=== PATIENT | female | born 2005 | race Hispanic/Latino ===

== ENCOUNTER 2025-03-06 16:43 | Emergency (ER) | payer SELFPAY ==
[2025-03-06] MEDS ORDERED: NA CHLORIDE 0.9% 1,000 ML ONE (17:18)
[2025-03-06 17:32] LABS: Absolute Lymphocytes (CBC) 0.8 K/uL (0.7-4.9); Hematocrit 21.0 % (36.0-45.0); Hemoglobin 7.2 g/dL (12.0-15.0); MCH 28.2 pg (27.0-35.0); MCHC 34.2 g/dL (32.0-36.0); MCV 82.5 fL (80-100); MPV 9.4 fL (7.6-11.3); Nucleated RBC Absolute Count 0.0 (0-0); Nucleated Red Blood Cells % 0.0 % (0-0); RBC Red Blood Cell Count 2.54 M/uL (3.86-4.86); White Blood Count 6.00 thou/uL (4.3-10.9)
[2025-03-06 17:41] LABS: PT Prothrombin Time 13.1 SECONDS (10-13.0); PTT, Activated Partial Thromb 26.0 SECONDS (27.2-37.4); Protime INR 1.16
[2025-03-06 18:19] LABS: ALT/SGPT < 14 U/L (13-56); AST/SGOT < 10 U/L (15-37); Albumin 3.4 g/dL (3.4-5.0); Albumin/Globulin Ratio 0.9 (1.1-1.8); Alkaline Phosphatase 72 U/L (45-117); Anion Gap 9.5 mEq/L (5.0-15.0); BUN Blood Urea Nitrogen 15 mg/dL (7-18); Globulin 3.8 g/dL (2.3-3.5); Glucose Level 107 mg/dL (74-106); Magnesium 1.9 mg/dL (1.6-2.4); Potassium 3.5 mEq/L (3.5-5.1)
[2025-03-06 18:20] LABS: Bilirubin Indirect, Calculated 0.2 mg/dL (0.2-0.8); Troponin High Sensitivity < 3.0 pg/mL (<58.9)
[2025-03-06 18:31] LABS: Sqamous Epithelial <5 /HPF (None Seen); Urine Culture Reflex Order REFLEXED; Urine Microscopic Reflex YN ORDER UMIC
[2025-03-06] MEDS ORDERED: NA CHLORIDE 0.9% 250 ML ONE (18:48)
--- NOTE | 2025-03-06 18:49 | RAD REPORT ---
EXAMINATION: UPPER EXTREMITY VENOUS UNILATE CLINICAL INDICATION: Arm pain TECHNIQUE: Complete bilateral duplex sonography of the right upper extremity veins was performed. The examination included compression for vein patency, color Doppler imaging and flow augmentation in response to distal compression of the internal jugular,, subclavian, axillary, brachial, radial, ulna r, cephalic and basilic veins. .Grayscale, color and spectral analysis performed on all vessels COMPARISON: No prior exam. FINDINGS: The right internal jugular, subclavian, axillary, brachial, basilic, cephalic, radial and ulnar veins are generally compressible and demonstrate augmentation. Color Doppler demonstrates good flow. IMPRESSION: No evidence of venous thrombus right arm
--- NOTE | 2025-03-06 18:53 | RAD REPORT ---
EXAMINATION: Transvaginal Study Probe CLINICAL INDICATION: Pelvic pain TECHNIQUE: Real-time ultrasonography of the pelvis was performed transvaginally. Color and spectral D oppler evaluation of the ovaries was performed. COMPARISON: No prior exam. FINDINGS: The uterus measures 8 x 4 x 5 cm.. A fibroid is not seen. The endometrial stripe measures 1.6 cm. Right ovary normal in size and echotexture. Left ovary normal in size and echotexture. Right and left adnexa unremarkable No significant free fluid IMPRESSION: Mild thickening of the endometrium may be physiologic. However, it is recommended that the patient acevedo ve a follow-up endovaginal sonogram in a couple of months for reevaluation.
--- NOTE | 2025-03-06 18:58 | RAD REPORT ---
Procedure: Chest Single View HISTORY: Syncope COMPARISON: none FINDINGS: The lungs appear clear of acute infiltrate. No significant pleural effusion noted. The heart is normal size. IMPRESSION: No acute abnormality is displayed.
[2025-03-06] MEDS ORDERED: ACETAMINOPHEN 325 MG TABLET ONE (19:39)
[2025-03-06] MEDS ORDERED: NA CHLORIDE 0.9% 100 ML ONE (20:06)
[2025-03-06] MEDS ORDERED: TRANEXAMIC ACID 1,000 MG/10 ML VIAL IV ONE (20:06)
--- NOTE | 2025-03-06 21:45 | ER ---
Nurse's Notes [facility] Name: Alma Macias Age: 19 yrs Sex: Female : 2005 Arrival Date: 03/06/2025 Time: 16:43 Bed 20 Private MD: Diagnosis: Abnormal uterine and vaginal bleeding, unspecified;Anemia, unspecified Presentation: 03/06 16:48 Chief complaint: Patient states: C/O near syncope, dizziness, heavy menstrual cycle x2 ar8 weeks, and right arm numbness/pain. 16:48 Coronavirus screen: At this time, the client does not indicate any symptoms associated ar8 with coronavirus-19. Ebola Screen: No symptoms or risks identified at this time. Initial Sepsis Screen: Does the patient meet any 2 criteria? No. Patient's initial sepsis screen is negative. Does the patient have a suspected source of infection? No. Patient's initial sepsis screen is negative. Risk Assessment: Do you want to hurt yourself or someone else? Patient reports no desire to harm self or others. Onset of symptoms was March 06, 2025. 16:48 Method Of Arrival: Wheelchair ar8 16:48 Acuity: JANNA 3 ar8 Triage Assessment: 16:48 General: Appears in no apparent distress. Behavior is cooperative. ar8 16:48 Neuro: Reports dizziness, since this morning numbness in right arm. 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 - Infectious Disease History:: Denies. - Social history:: Smoking status: Patient denies any tobacco usage or history of. Screenin:15 [facility] ED Fall Risk Assessment (Adult) History of falling in the last 3 months, jl7 including since admission No falls in past 3 months (0 pts) Confusion or Disorientation No (0 pts) Intoxicated or Sedated No (0 pts) Impaired Gait No (0 pts) Mobility Assist Device Used No (0 pt) Altered Elimination No (0 pt) Score/Fall Risk Level 0 - 2 = Low Risk Oriented to surroundings, Maintained a safe environment. Abuse screen: Denies threats or abuse. Denies injuries from another. Nutritional screening: No deficits noted. Tuberculosis screening: No symptoms or risk factors identified. Assessment: 17:00 General: Appears in no apparent distress. uncomfortable, Behavior is calm, cooperative, jl7 appropriate for age. Pain: Denies pain. Neuro: Cooper Agitation-Sedation Scale (RASS): 0 - Alert and Calm Level of Consciousness is awake, alert, obeys commands, Oriented to person, place, time, situation. Cardiovascular: Patient's skin is warm and dry. Respiratory: Airway is patent Respiratory effort is even, unlabored, Respiratory pattern is regular, symmetrical. : Urine is blood tinged, Reports vaginal bleeding that is. Derm: Skin is dry, Skin is pale, Skin temperature is cool. 18:00 Reassessment: Patient appears in no apparent distress at this time. No changes from jl7 previously documented assessment. Patient and/or family updated on plan of care and expected duration. Pain level reassessed. Patient is alert, oriented x 3, equal unlabored respirations, skin warm/dry/pink. 18:43 Reassessment: blood request form sent to lab. jl7 19:14 General: Appears in no apparent distress. comfortable, Behavior is calm, cooperative, bm8 appropriate for age. Pain: Denies pain. Neuro: No deficits noted. Level of Consciousness is awake, alert, obeys commands, Oriented to person, place, time, situation. Cardiovascular: Denies chest pain, Capillary refill is > 3 seconds is sluggish in bilateral fingers Patient's skin is warm and dry. Respiratory: Airway is patent Respiratory effort is even, unlabored, Respiratory pattern is regular, symmetrical. Derm: Skin is dry, Skin is pale, Skin temperature is cool. 20:04 Reassessment: Patient appears in no apparent distress at this time. Patient and/or zm family updated on plan of care and expected duration. Pain level reassessed. Patient is alert, oriented x 3, equal unlabored respirations, skin warm/dry/pink. Patient states feeling better. Patient states symptoms have improved. General: Appears in no apparent distress. comfortable, Behavior is calm, cooperative, appropriate for age. Pain: Denies pain. Neuro: No deficits noted. Level of Consciousness is awake, alert, obeys commands, Oriented to person, place, time, situation. Cardiovascular: No deficits noted. Denies chest pain, Capillary refill < 3 seconds in bilateral fingers. Respiratory: No deficits noted. Airway is patent Respiratory effort is even, unlabored, Respiratory pattern is regular, symmetrical. 21:24 Reassessment: Patient appears in no apparent distress at this time. Patient and/or zm family updated on plan of care and expected duration. Pain level reassessed. Patient is alert, oriented x 3, equal unlabored respirations, skin warm/dry/pink. Patient states feeling better. Patient states symptoms have improved. General: Appears in no apparent distress. comfortable. Pain: Denies pain. Neuro: No deficits noted. Level of Consciousness is awake, alert, obeys commands, Oriented to person, place, time, situation. Cardiovascular: No deficits noted. Denies chest pain, Capillary refill < 3 seconds in bilateral fingers Patient's skin is warm and dry. Respiratory: No deficits noted. Airway is patent Respiratory effort is even, unlabored, Respiratory pattern is regular, symmetrical. 22:04 Reassessment: Patient appears in no apparent distress at this time. Patient and/or zm family updated on plan of care and expected duration. Pain level reassessed. Patient is alert, oriented x 3, equal unlabored respirations, skin warm/dry/pink. Patient states feeling better. Patient states symptoms have improved. Vital Signs: 16:50 BP 111 / 76; Pulse 93; Resp 16; Temp 97.1(TE); Pulse Ox 100% on R/A; ar8 17:15 BP 113 / 71; Pulse 99; Resp 15; Pulse Ox 100% ; jl7 18:30 BP 115 / 62; Pulse 93; Resp 15; Pulse Ox 100% ; jl7 19:14 BP 100 / 63; Pulse 91; Resp 14; Temp 98.9; Pulse Ox 100% ; Pain 0/10; bm8 20:08 BP 124 / 62; Pulse 90; Resp 20; Temp 98.9; Pulse Ox 100% on R/A; zm 21:26 BP 93 / 64; Pulse 78; Resp 14; Temp 98.2; Pulse Ox 100% on R/A; Pain 0/10; zm 21:55 BP 110 / 77; Pulse 77; Resp 15; Temp 98.2; Pulse Ox 100% ; Pain 0/10; bm8 19:14 Pain Scale: Adult bm8 21:26 Pain Scale: Adult zm 21:55 Pain Scale: Adult bm8 [place] Coma Score: 19:14 Eye Response: spontaneous(4). Motor Response: obeys commands(6). Verbal Response: bm8 oriented(5). Total: 15. 20:08 Eye Response: spontaneous(4). Motor Response: obeys commands(6). Verbal Response: zm oriented(5). Total: 15. 21:26 Eye Response: spontaneous(4). Motor Response: obeys commands(6). Verbal Response: zm oriented(5). Total: 15. 21:55 Eye Response: spontaneous(4). Motor Response: obeys commands(6). Verbal Response: bm8 oriented(5). Total: 15. ED Course: 16:46 Patient arrived in ED. im 16:47 Alea Berger PA-C is PHCP. sb4 16:47 Wes Freeman MD is Attending Physician. sb4 16:48 Arm band placed on right wrist. ar8 16:58 Inserted saline lock: 20 gauge in right antecubital area, using aseptic technique. ap3 Blood collected. Flushed with 10 mL NS. 16:59 Client placed on continuous cardiac and pulse oximetry monitoring. NIBP monitoring ap3 applied. monitor car operator on. Pulse ox on. NIBP on. 17:00 Christina Mckeon, RN is Primary Nurse. jl7 17:12 Triage completed. ar8 17:13 Initial lab(s) drawn, by ED staff, sent to lab. ts3 17:13 EKG done, by ED staff. ts3 17:15 Patient has correct armband on for positive identification. Bed in low position. Call jl7 light in reach. Side rails up X 1. Warm blanket given. 18:10 Urine collected: clean catch specimen, SENT TO LAB. ts3 18:31 Chest Single View XRAY In Process Unspecified. EDMS 18:38 UPPER EXTREMITY VENOUS UNILATE In Process Unspecified. EDMS 18:38 Transvaginal Study (probe) In Process Unspecified. EDMS 18:47 Provided Education on: Blood Transfusion. jl7 19:10 No provider procedures requiring assistance completed. Patient maintains SpO2 bm8 saturation greater than 95% on room air. 19:23 PHCP role handed off by Alea Berger PA-C cp 19:23 Alexander Joe PA is PHCP. cp 21:45 Iris Villaseñor MD is Referral Physician. cp 21:55 IV discontinued, intact, bleeding controlled, No redness/swelling at site. Pressure bm8 dressing applied. 21:55 Provided Education on: Post er care, follow up with OBGYN. bm8 Administered Medications: 17:31 Drug: NS 0.9% IV 1000 ml IV at 1 bolus Per protocol; to be given as a bolus over 60 jl7 minutes Route: IV; Rate: 1 bolus; Site: right antecubital; 18:43 Follow up: Response: No adverse reaction; IV Status: Completed infusion jl7 19:45 Drug: Acetaminophen PO 650 mg PO once Route: PO; zm 20:17 Follow up: Response: No adverse reaction zm 21:44 Drug: tranexamic acid IV 1000 mg IV at calculated rate once; administer at a rate not zm to exceed 100 mg per min Route: IV; Rate: calculated rate; Site: right antecubital; 21:56 Follow up: Response: No adverse reaction; IV Status: Completed infusion bm8 Medication: 17:15 VIS not applicable for this client. jl7 19:10 Blood products: PRBCs X 1 unit given. See transfusion record. bm8 Outcome: 21:45 Discharge ordered by MD. cp 21:55 Discharged to home ambulatory, with family, bm8 21:55 Condition: stable 21:55 Discharge instructions given to patient, family, Instructed on discharge instructions, follow up and referral plans. no drinking with medication, no driving heavy equipment, medication usage, safe sex practices, safety practices, control, Demonstrated understanding of instructions, follow-up care, medications, Prescriptions given X 1, 22:14 Patient left the ED. santiago Signatures: Dispatcher [employer] EDMS Alexander Joe PA-C PA-C cp Leal, Jahala, RN RN jl7 Marlene Scott RN RN marina3 Eduarda Victor RN RN zm Brown, Sophia, PA-C PA-C sb4 Kathryn Trammell Brad RN RN bm8 Zina Marin ts3 Jackson Choudhury RN RN ar8
--- NOTE | 2025-03-06 21:45 | EDPHYS ---
Physician Documentation [facility] Name: Alma Macias Age: 19 yrs Sex: Female : 2005 Arrival Date: 03/06/2025 Time: 16:43 Bed 20 Private MD: ED Physician Wes Freeman HPI: 03/06 16:57 This 19 yrs old Female presents to ER via Unassigned with complaints of Arm Pain, sb4 Numbness Of Arm, Near Syncope, Vaginal Bleeding - 2 weeks. 17:00 Patient presents today with several complaints. She states that she initially had an sb4 episode of some right arm numbness weakness a few days ago but thought it was just because she slept on it funny. States that today while at work, she had a near syncopal episode and her arm has been feeling numb and weak again. Additionally, she states that she has been on her menstrual cycle for 2 weeks now, bleeding heavily. States that this is abnormal for her, and her cycles typically last 5 days but are irregular when they do come. She is not on any rate control. Denies any chance of . Denies any chest pain or shortness of breath. 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 - Infectious Disease History:: Denies. - Social history:: Smoking status: Patient denies any tobacco usage or history of. ROS: 17:00 Constitutional: Negative for fever, chills, and weight loss, sb4 17:00 : Positive for vaginal bleeding, 17:00 Neuro: Positive for dizziness, numbness, weakness, of the right arm, 17:00 All other systems are negative, Exam: 17:00 Head/Face: Normocephalic, atraumatic. Eyes: Extra-ocular motions intact. Periorbital sb4 areas with no swelling, redness, or edema. ENT: Mucous membranes moist. Cardiovascular: Regular rate and rhythm with a normal S1 and S2. Respiratory: No increased work of breathing, no retractions or nasal flaring. Abdomen/GI: Soft, non-tender, no distension. Skin: Warm, dry with normal turgor. Normal color with no rashes, no lesions, and no evidence of cellulitis. MS/ Extremity: Pulses equal, no cyanosis. Neurovascular intact. Full, normal range of motion. Neuro: Awake and alert, GCS 15, oriented to person, place, time, and situation. Motor strength 5/5 in all extremities. Sensory grossly intact. 17:00 Constitutional: The patient appears in no acute distress, alert, awake, pale, 17:13 ECG was reviewed by the Attending Physician. cp Vital Signs: 16:50 BP 111 / 76; Pulse 93; Resp 16; Temp 97.1(TE); Pulse Ox 100% on R/A; ar8 17:15 BP 113 / 71; Pulse 99; Resp 15; Pulse Ox 100% ; jl7 18:30 BP 115 / 62; Pulse 93; Resp 15; Pulse Ox 100% ; jl7 19:14 BP 100 / 63; Pulse 91; Resp 14; Temp 98.9; Pulse Ox 100% ; Pain 0/10; bm8 20:08 BP 124 / 62; Pulse 90; Resp 20; Temp 98.9; Pulse Ox 100% on R/A; zm 21:26 BP 93 / 64; Pulse 78; Resp 14; Temp 98.2; Pulse Ox 100% on R/A; Pain 0/10; zm 21:55 BP 110 / 77; Pulse 77; Resp 15; Temp 98.2; Pulse Ox 100% ; Pain 0/10; bm8 19:14 Pain Scale: Adult bm8 21:26 Pain Scale: Adult zm 21:55 Pain Scale: Adult bm8 Porsche Coma Score: 19:14 Eye Response: spontaneous(4). Motor Response: obeys commands(6). Verbal Response: bm8 oriented(5). Total: 15. 20:08 Eye Response: spontaneous(4). Motor Response: obeys commands(6). Verbal Response: zm oriented(5). Total: 15. 21:26 Eye Response: spontaneous(4). Motor Response: obeys commands(6). Verbal Response: zm oriented(5). Total: 15. 21:55 Eye Response: spontaneous(4). Motor Response: obeys commands(6). Verbal Response: bm8 oriented(5). Total: 15. MDM: 16:47 Medical Screening Exam initiated sb4 17:04 Differential diagnosis: anemia, hypokalemia, dysmenorrhea, menorrhagia. Historians sb4 other than the Patient: Parent: dad. 17:49 ED course: Hemoglobin came back at 7.2. Will transfuse 1 unit of blood and add on sb4 transvaginal ultrasound to further evaluate source of bleeding. 17:56 Data reviewed: vital signs, nurses notes, lab test result(s), EKG, radiologic studies, sb4 I have discussed the patient's presentation/case with the attending Emergency Department Physician;. Counseling: I had a detailed discussion with the patient and/or guardian regarding the historical points, exam findings, and any diagnostic results supporting the discharge/admit diagnosis, lab results, radiology results. 03/06 16:57 Order name: Basic Metabolic Panel; Complete Time: 18:20 sb4 03/06 16:57 Order name: CBC with Diff; Complete Time: 17:36 sb4 03/06 16:57 Order name: Hepatic Function; Complete Time: 18:20 sb4 03/06 16:57 Order name: Magnesium; Complete Time: 18:20 sb4 03/06 16:57 Order name: Protime (+inr); Complete Time: 17:45 sb4 03/06 16:57 Order name: Ptt, Activated; Complete Time: 17:45 sb4 03/06 16:57 Order name: Troponin High Sensitivity; Complete Time: 18:20 sb4 03/06 16:57 Order name: Test, Serum; Complete Time: 18:06 sb4 03/06 16:57 Order name: UA Rfx Mikel Cult if indicated; Complete Time: 18:35 sb4 03/06 16:57 Order name: Type And Screen sb4 03/06 18:19 Order name: ABO/RH no charge; Complete Time: 18:20 EDMS 03/06 18:23 Order name: Packed RBC Leukored EDMS 03/06 18:38 Order name: Urine Culture EDMS 03/06 16:57 Order name: Chest Single View XRAY; Complete Time: 18:58 sb4 03/06 17:00 Order name: UPPER EXTREMITY VENOUS UNILATE; Complete Time: 18:51 EDMS 03/06 17:39 Order name: Transvaginal Study (probe); Complete Time: 18:53 sb4 03/06 16:57 Order name: EKG; Complete Time: 16:57 sb4 03/06 16:57 Order name: Cardiac monitoring; Complete Time: 16:59 sb4 03/06 16:57 Order name: EKG - Nurse/Tech; Complete Time: 17:13 sb4 03/06 16:57 Order name: IV Saline Lock; Complete Time: 16:59 sb4 03/06 16:57 Order name: Labs collected and sent; Complete Time: 17:13 sb4 03/06 16:57 Order name: O2 Per Protocol; Complete Time: 16:59 sb4 03/06 16:57 Order name: O2 Sat Monitoring; Complete Time: 16:59 sb4 03/06 17:41 Order name: Transfuse; Complete Time: 19:14 sb4 EC:13 Rate is 96 beats/min. Rhythm is regular. NC interval is normal. QRS interval is normal. cp QT interval is normal. T waves are Inverted in leads aVL, aVR. Interpreted by me. Reviewed by me. Administered Medications: 17:31 Drug: NS 0.9% IV 1000 ml IV at 1 bolus Per protocol; to be given as a bolus over 60 jl7 minutes Route: IV; Rate: 1 bolus; Site: right antecubital; 18:43 Follow up: Response: No adverse reaction; IV Status: Completed infusion jl7 19:45 Drug: Acetaminophen PO 650 mg PO once Route: PO; zm 20:17 Follow up: Response: No adverse reaction zm 21:44 Drug: tranexamic acid IV 1000 mg IV at calculated rate once; administer at a rate not zm to exceed 100 mg per min Route: IV; Rate: calculated rate; Site: right antecubital; 21:56 Follow up: Response: No adverse reaction; IV Status: Completed infusion bm8 Disposition Summary: 03/06/25 21:45 Discharge Ordered Notes: Location: Home cp Problem: new cp Symptoms: have improved cp Condition: Stable cp Diagnosis - Abnormal uterine and vaginal bleeding, unspecified cp - Anemia, unspecified cp Followup: sb4 - With: Iris Villaseñor MD - When: 2 - 3 days - Reason: Further diagnostic work-up, Recheck today's complaints, Re-evaluation by your physician Discharge Instructions: - Form - Return To Work cp - Discharge Summary Sheet sb4 - Abnormal Uterine Bleeding, [id number] sb4 - Blood Transfusion, Adult, Care After, [id number] sb4 Forms: - Medication Reconciliation Form cp - Antibiotic Education cp - Prescription Opioid Use cp - Patient Portal Instructions cp - Leadership Thank You Letter cp - Work release form bm8 Prescriptions: - Sprintec (28) 0.25-0.035 mg Oral tablet - take 1 tablet ORAL route daily; 1 Pack; Refills: 0, Product Selection Permitted sb4 Critical care time excluding procedures: 17:55 Critical care time: Bedside Care: 20 minutes, Consultation: 10 minutes, Family sb4 Intervention: 5 minutes. Total time: 35 minutes Signatures: Dispatcher [employer] EDMS Alexander Joe, Christina Enriquez PA-C, cp RN RN jl7 Eduarda Victor RN RN Alea Turk PA-C PA-C sb4 Jackson Choudhury RN RN ar8 Terry Campbell RN bm8 Corrections: (The following items were deleted from the chart) 16:57 16:57 BASIC METABOLIC PANEL+C.LAB.BRZ ordered. EDMS EDMS 16:57 16:57 CBC+H.LAB.BRZ ordered. EDMS EDMS 16:57 16:57 HEPATIC FUNCTION+C.LAB.BRZ ordered. EDMS EDMS 16:57 16:57 MAGNESIUM+C.LAB.BRZ ordered. EDMS EDMS 16:57 16:57 PROTIME (+INR)+COAG.LAB.BRZ ordered. EDMS EDMS 16:57 16:57 PTT, ACTIVATED+COAG.LAB.BRZ ordered. EDMS EDMS 16:57 16:57 Troponin High Sensitivity+C.LAB.BRZ ordered. EDMS EDMS 16:57 16:57 TEST, SERUM+SC.LAB.BRZ ordered. EDMS EDMS 16:57 16:57 UA Rfx Mikel Cult if indicated+U.LAB.BRZ ordered. EDMS EDMS 16:57 16:57 TYPE AND SCREEN+BB.LAB.BRZ ordered. EDMS EDMS 16:57 16:57 Extremity Venous Uni Ltd+US.RAD.BRZ ordered. EDMS EDMS 16:58 16:57 ABO/RH TYPING+BB.LAB.BRZ ordered. EDMS EDMS
[2025-03-07 05:33] VITALS: O2SAT 100
[2025-03-07 05:44] VITALS: TEMP 98.2
[2025-03-07 05:46] VITALS: BP 110/77
== END 2025-03-06 22:14 | disposition home or self-care (01) ==
LOC: ER 16:43
PROC: 30233N1 Transfusion of Nonautologous Red Blood Cells into Peripheral Vein, Percutaneous Approach (ICD-10-PCS; principal; 2025-03-06)
DX: D64.9 Anemia, unspecified (principal)
CPT/HCPCS: 36415; 36430; 71045; 76830; 80048; 80076; 81001; 83735; 84484; 84703; 85025; 85610; 85730; 86850; 86900; 86901; 86920; 87086; 87088; 93005; 93971; 96361; 96374; 99285; J7030; J7050; P9016

== ENCOUNTER 2025-03-08 15:10 | Inpatient (IN) | payer SELFPAY ==
[2025-03-08 15:32] LABS: Absolute Lymphocytes (CBC) 1.1 K/uL (0.7-4.9); Hematocrit 16.9 % (36.0-45.0); MCH 28.4 pg (27.0-35.0); MCHC 34.5 g/dL (32.0-36.0); MCV 82.2 fL (80-100); MPV 8.9 fL (7.6-11.3); Nucleated RBC Absolute Count 0.0 (0-0); Nucleated Red Blood Cells % 0.0 % (0-0); RBC Red Blood Cell Count 2.05 M/uL (3.86-4.86); White Blood Count 9.60 thou/uL (4.3-10.9)
[2025-03-08 15:36] LABS: Hemoglobin 5.8 g/dL (12.0-15.0)
[2025-03-08 15:50] LABS: ALT/SGPT 16.0 U/L (13-56); AST/SGOT 13.0 U/L (15-37); Albumin 3.1 g/dL (3.4-5.0); Albumin/Globulin Ratio 1.0 (1.1-1.8); Alkaline Phosphatase 47.0 U/L (45-117); Anion Gap 12.7 mEq/L (5.0-15.0); BUN Blood Urea Nitrogen 15.0 mg/dL (7-18); Globulin 3.1 g/dL (2.3-3.5); Glucose Level 155.0 mg/dL (74-106); Potassium 3.7 mEq/L (3.5-5.1)
[2025-03-08] MEDS ORDERED: NA CHLORIDE 0.9% 250 ML ONE (17:47)
--- NOTE | 2025-03-08 17:47 | EDPHYS ---
Physician Documentation [facility] Name: Alma Macias Age: 19 yrs Sex: Female : 2005 Arrival Date: 03/08/2025 Time: 15:10 Bed 8 Private MD: ED Physician Manish Robb HPI: 03/08 17:18 This 19 yrs old Female presents to ER via Ambulatory with complaints of ms3 General Weakness. 17:18 19-year-old female past medical history of anemia presents to the emergency department ms3 for generalized weakness, shortness of breath, vaginal bleeding going for 2 weeks. Patient states she was seen in the emergency department on Saturday and given blood transfusion at that time. Patient endorses shortness of breath, dizziness, lightheadedness. Patient states she is going through 1 pad every 1-2 hours. Patient denies pain at this time.. ANIMAL STUNNER: 20:12 unknown bm8 Historical: - Allergies: 15:17 No Known Allergies; aa5 - PMHx: 15:17 Anemia; aa5 - Immunization history:: Adult Immunizations unknown. - Infectious Disease History:: Denies. - Social history:: Smoking status: Patient denies any tobacco usage or history of. ROS: 17:18 MS/Extremity: Negative for injury and deformity, Skin: Negative for injury, rash, and ms3 discoloration, 17:18 Cardiovascular: Negative for chest pain, and palpitations. 17:18 Constitutional: Positive for fatigue, 17:18 : Positive for vaginal bleeding, 17:18 Respiratory: Positive for shortness of breath, ms3 Exam: 17:17 ECG was reviewed by the Attending Physician. ms3 17:18 Constitutional: This is a well developed, well nourished patient who is awake, alert, ms3 and in no acute distress. Respiratory: Lungs have equal breath sounds bilaterally, clear to auscultation and percussion. No rales, rhonchi or wheezes noted. No increased work of breathing, no retractions or nasal flaring. Abdomen/GI: Soft, non-tender, with normal bowel sounds. No distension or tympany. No guarding or rebound. No evidence of tenderness throughout. Skin: Warm, dry with normal turgor. Normal color with no rashes, no lesions, and no evidence of cellulitis. MS/ Extremity: Pulses equal, no cyanosis. Neurovascular intact. Full, normal range of motion. 17:18 Cardiovascular: Rate: tachycardic, Rhythm: regular, Pulses: no pulse deficits are appreciated, Heart sounds: normal, normal S1and S2, Vital Signs: 15:12 BP 114 / 75; Pulse 136; Resp 24 S; Pulse Ox 100% on R/A; aa5 15:22 Temp 98.2; Weight 55.79 kg; Height 5 ft. 2 in. ; nh2 16:00 BP 96 / 64; Pulse 125; Resp 17; Pulse Ox 99% on R/A; hb 17:00 BP 111 / 63; Pulse 118; Resp 18; Pulse Ox 97% on R/A; hb 18:00 BP 94 / 67; Pulse 105; Resp 18; Pulse Ox 98% on R/A; hb 19:05 BP 105 / 59; Pulse 94; Resp 16; Temp 97; Pulse Ox 100% ; Pain 0/10; bm8 20:11 BP 100 / 52; Pulse 93; Resp 16; Temp 98; Pulse Ox 100% ; Pain 0/10; bm8 15:22 Body Mass Index 22.50 (55.79 kg, 157.48 cm) nh2 19:05 Pain Scale: Adult bm8 20:11 Pain Scale: Adult bm8 Porsche Coma Score: 19:05 Eye Response: spontaneous(4). Motor Response: obeys commands(6). Verbal Response: bm8 oriented(5). Total: 15. 20:11 Eye Response: spontaneous(4). Motor Response: obeys commands(6). Verbal Response: bm8 oriented(5). Total: 15. MDM: 15:28 Medical Screening Exam initiated ms3 17:18 Differential diagnosis: dysfunctional uterine bleeding, dysmenorrhea, Anemia. Data ms3 reviewed: vital signs, nurses notes, lab test result(s), and as a result, I will admit patient. Consideration of Admission/Observation Patient was admitted/placed on observation. Management of patient was discussed with the following: It Operations Analyst: Dr Villaseñor. Independent interpretation of the following test(s) in the Emergency Department EKG: See my EKG interpretation above. Counseling: I had a detailed discussion with the patient and/or guardian regarding the historical points, exam findings, and any diagnostic results supporting the discharge/admit diagnosis, lab results, the need for further work-up and treatment in the hospital. 17:44 I considered the following discharge prescriptions or medication management in the ms3 emergency department Medications were administered in the Emergency Department. See MAR. ED course: Discussed necessity for admission with the patient. She understands and agrees with plan. All questions were answered. Patient remains in stable condition in the emergency department.. 03/08 15:13 Order name: CBC with Diff; Complete Time: 16:13 ms3 03/08 15:13 Order name: CMP; Complete Time: 16:13 ms3 03/08 15:13 Order name: Test, Serum; Complete Time: 16:13 ms3 03/08 15:49 Order name: Type And Screen ms3 03/08 15:58 Order name: Bb Add On bd 03/08 16:17 Order name: Quantitative Hcg; Complete Time: 17:42 ms3 03/08 17:09 Order name: Type and Screen EDMS 03/08 17:09 Order name: Packed RBC Leukored EDMS 03/08 20:03 Order name: CBC without Diff EDMS 03/08 20:05 Order name: CBC with Automated Diff EDMS 03/08 20:05 Order name: CBC with Automated Diff EDMS 03/08 20:05 Order name: Comprehensive Metabolic Panel EDMS 03/08 20:05 Order name: Comprehensive Metabolic Panel EDMS 03/08 20:05 Order name: Magnesium EDMS 03/08 20:05 Order name: Magnesium EDMS 03/08 15:13 Order name: EKG; Complete Time: 15:13 ms3 03/08 15:13 Order name: EKG Strip; Complete Time: 15:38 ms3 EC:17 Rate is 108 beats/min. Rhythm is regular. QRS [place] is Normal. LA interval is normal. ms3 QRS interval is normal. Clinical impression: Sinus tachycardia. Interpreted by me. Reviewed by me. Administered Medications: 18:00 Drug: DepoProvera - medroxyPROGESTERone IM 150 mg IM once; Only after HCG 0 Route: IM; bp Site: right gluteus; 20:12 Follow up: Response: No adverse reaction bm8 Disposition Summary: 03/08/25 17:46 Hospitalization Ordered Notes: Hospitalization Status: Observation ms3 Provider: Bashir Lozada ms3 Location: Telemetry/MedSurg (observation) ms3 Condition: Stable ms3 Problem: new ms3 Symptoms: are unchanged ms3 Bed/Room Type: Standard ms3 Room Assignment: 228(03/08/25 20:04) [facility] Diagnosis - Anemia, unspecified ms3 - Shortness of breath ms3 - Tachycardia, unspecified ms3 Discharge Instructions: - Discharge Summary Sheet [facility] Forms: - Medication Reconciliation Form ms3 - SBAR form ms3 - Leadership Thank You Letter ms3 - Family Work Release [facility] Critical care time excluding procedures: 17:44 Critical care time: Bedside Care: 30 minutes, Consultation: 10 minutes, Family ms3 Intervention: 5 minutes. Total time: 45 minutes Signatures: Dispatcher [employer] EDLuz Austin RN RN aa5 Hedy Jeffers RN RN Brandon Sanz RN RN bp Manish Robb DO DO ms3 Nancy Gomez [facility] Terry Campbell RN bm8 Corrections: (The following items were deleted from the chart) 17:22 17:18 Cardiovascular: Negative for chest pain, and palpitations. Respiratory: Negative ms3 for shortness of breath, cough, wheezing, and pleuritic chest pain, ms3 20:04 17:46 ms3 [facility]
--- NOTE | 2025-03-08 17:47 | ER ---
Nurse's Notes [facility] Name: Alma Macias Age: 19 yrs Sex: Female : 2005 Arrival Date: 03/08/2025 Time: 15:10 Bed 8 Private MD: Diagnosis: Anemia, unspecified;Shortness of breath;Tachycardia, unspecified Presentation: 03/08 15:12 Chief complaint: Patient states: heavy vaginal bleeding x weeks, pt denies pain. Pt c/o aa5 generalized weakness, SOB, and dizziness. Pt appears pale during triage. 15:12 Coronavirus screen: At this time, the client does not indicate any symptoms associated aa5 with coronavirus-19. Ebola Screen: Patient denies travel to an Ebola-affected area in the 21 days before illness onset. Initial Sepsis Screen: Does the patient meet any 2 criteria? RR > 20 per min. HR > 90 bpm. Does the patient have a suspected source of infection? No. Patient's initial sepsis screen is negative. Risk Assessment: Do you want to hurt yourself or someone else? Patient reports no desire to harm self or others. Onset of symptoms was February 20, 2025. 15:12 Acuity: JANNA 2 aa5 15:12 Method Of Arrival: Ambulatory aa5 PHARMACY ASSOCIATE: 20:12 unknown bm8 Historical: - Allergies: 15:17 No Known Allergies; aa5 - PMHx: 15:17 Anemia; aa5 - Immunization history:: Adult Immunizations unknown. - Infectious Disease History:: Denies. - Social history:: Smoking status: Patient denies any tobacco usage or history of. Screenin:04 [facility] ED Fall Risk Assessment (Adult) History of falling in the last 3 months, hb including since admission No falls in past 3 months (0 pts) Confusion or Disorientation No (0 pts) Intoxicated or Sedated No (0 pts) Impaired Gait No (0 pts) Mobility Assist Device Used No (0 pt) Altered Elimination No (0 pt) Score/Fall Risk Level 0 - 2 = Low Risk Oriented to surroundings, Maintained a safe environment, Educated pt \T\ family on fall prevention, incl call for assistance when getting out of bed. Abuse screen: Denies threats or abuse. Denies injuries from another. Nutritional screening: No deficits noted. Tuberculosis screening: No symptoms or risk factors identified. Assessment: 17:04 General: Appears in no apparent distress. ill, Behavior is calm, cooperative. Pain: hb Denies pain. Neuro: Level of Consciousness is obeys commands, lethargic, Oriented to person, place, time, situation. Cardiovascular: Patient's skin is warm and dry. Respiratory: Respiratory effort is even, unlabored, Respiratory pattern is regular, symmetrical. GI: No signs and/or symptoms were reported involving the gastrointestinal system. : heavy vaginal bleeding with clots. EENT: No signs and/or symptoms were reported regarding the EENT system. Derm: Skin is dry, Skin is pale, Skin temperature is warm. Musculoskeletal: No signs and/or symptoms reported regarding the musculoskeletal system. 18:16 Reassessment: First Unit PRBCs started. See paper chart for transfusion flowsheet. hb 19:05 Reassessment: Patient appears in no apparent distress at this time. Patient and/or bm8 family updated on plan of care and expected duration. Pain level reassessed. Patient is alert, oriented x 3, equal unlabored respirations, skin warm/dry/pink. pt is resting with eyes closed breathing is even unlabored with symmetrical rise and fall of chest. Blood infusing at protocol rate. pt showing no signs of distress at this time. 19:45 Reassessment: Patient appears in no apparent distress at this time. Patient and/or bm8 family updated on plan of care and expected duration. Pain level reassessed. Patient is alert, oriented x 3, equal unlabored respirations, skin warm/dry/pink. 1st unit of PRBC complete. 20:11 Reassessment: Patient appears in no apparent distress at this time. No changes from bm8 previously documented assessment. Patient and/or family updated on plan of care and expected duration. Pain level reassessed. Patient is alert, oriented x 3, equal unlabored respirations, skin warm/dry/pink. Patient denies pain at this time. Patient states feeling better. Vital Signs: 15:12 BP 114 / 75; Pulse 136; Resp 24 S; Pulse Ox 100% on R/A; aa5 15:22 Temp 98.2; Weight 55.79 kg; Height 5 ft. 2 in. ; nh2 16:00 BP 96 / 64; Pulse 125; Resp 17; Pulse Ox 99% on R/A; hb 17:00 BP 111 / 63; Pulse 118; Resp 18; Pulse Ox 97% on R/A; hb 18:00 BP 94 / 67; Pulse 105; Resp 18; Pulse Ox 98% on R/A; hb 19:05 BP 105 / 59; Pulse 94; Resp 16; Temp 97; Pulse Ox 100% ; Pain 0/10; bm8 20:11 BP 100 / 52; Pulse 93; Resp 16; Temp 98; Pulse Ox 100% ; Pain 0/10; bm8 15:22 Body Mass Index 22.50 (55.79 kg, 157.48 cm) nh2 19:05 Pain Scale: Adult bm8 20:11 Pain Scale: Adult bm8 Porsche Coma Score: 19:05 Eye Response: spontaneous(4). Motor Response: obeys commands(6). Verbal Response: bm8 oriented(5). Total: 15. 20:11 Eye Response: spontaneous(4). Motor Response: obeys commands(6). Verbal Response: bm8 oriented(5). Total: 15. ED Course: 15:11 Patient arrived in ED. im 15:12 Manish Robb DO is Attending Physician. ms3 15:12 Arm band placed on Patient placed in an exam room, on a stretcher. aa5 15:17 Brandon Sanz, RN is Primary Nurse. bp 15:20 Triage completed. aa5 15:22 Inserted saline lock: 22 gauge in right antecubital area, using aseptic technique. hb Blood collected. Flushed with 10 mL NS. 17:06 Patient has correct armband on for positive identification. Provided Education on: call hb light. Client placed on continuous cardiac and pulse oximetry monitoring. NIBP monitoring applied. wall covering contractor on. Pulse ox on. NIBP on. 17:45 Bashir Lozada MD is Hospitalizing Provider. ms3 18:50 Lights dimmed. Warm blanket given. hb 19:05 Report received from Nilson RN. bm8 19:05 No provider procedures requiring assistance completed. Patient admitted, IV remains in bm8 place. Patient maintains SpO2 saturation greater than 95% on room air. Administered Medications: 18:00 Drug: DepoProvera - medroxyPROGESTERone IM 150 mg IM once; Only after HCG 0 Route: IM; bp Site: right gluteus; 20:12 Follow up: Response: No adverse reaction bm8 Medication: 17:07 VIS not applicable for this client. hb 19:05 Blood products: PRBCs X 1 unit given. bm8 Outcome: 17:46 Decision to Hospitalize by Provider. ms3 20:11 Admitted to Med/surg via stretcher, room 228, with chart, bm8 20:11 Condition: stable 20:11 Instructed on follow up and referral plans. the need for admit, Demonstrated understanding of instructions, follow-up care, medications, 21:00 Patient left the ED. bm8 Signatures: Luz Wheat, RN RN aa5 Hedy Jeffers, RN RN hb Brandon Sanz, RN RN bp Manish Robb, DO DO ms3 Kathryn Trammell Brad, RN RN bm8 Cyrus Adams Jr, RN RN nh2
[2025-03-08] MEDS ORDERED: MEDROXYPROGEST ACET 150 MG/ML IM ONE (17:48)
[2025-03-08] MEDS: MEDROXYPROGEST ACET 150 MG/ML IM ONE (17:49)
[2025-03-08] MEDS ORDERED: HYDROCORTISONE SUC 100 MG INJ ONE (18:33)
[2025-03-08] MEDS ORDERED: DIPHENHYDRAMINE 50 MG/ML VIAL ONE (18:33)
[2025-03-08] MEDS ORDERED: ACETAMINOPHEN 325 MG TABLET ONE (18:33)
[2025-03-08] MEDS ORDERED: ONDANSETRON 4 MG/2 ML VIAL IV PRN (20:01)
[2025-03-08 21:18] VITALS: BMI 22.4
[2025-03-08 22:06] LABS: Hematocrit 20.4 % (36.0-45.0); Hemoglobin 7.0 g/dL (12.0-15.0); MCH 28.6 pg (27.0-35.0); MCHC 34.4 g/dL (32.0-36.0); MCV 83.3 fL (80-100); MPV 9.3 fL (7.6-11.3); RBC Red Blood Cell Count 2.45 M/uL (3.86-4.86); White Blood Count 7.60 thou/uL (4.3-10.9)
--- NOTE | 2025-03-08 22:12 | P.HP ---
Certification for Inpatient Patient admitted to: Observation With expected LOS: <2 Midnights Patient will require the following post-hospital care: None Practitioner: I am a practitioner with admitting privileges, knowledge of patient current condition, hospital course, and medical plan of care. Services: Services provided to patient in accordance with Admission requirements found in Title 42 Section 412.3 of the Code of Federal Regulations <Gurwinder Pope - Last Filed: 03/09/25 02:39> Patient History Date of Service: 03/08/25 Reason for admission: Anemia secondary to vaginal bleeding, ANNA. History of Present Illness: Patient is a pleasant 19-year-old female with no past medical history except vaginal bleeding that started 2 weeks ago, presents to the ER today complaining of continuous vaginal bleeding associated with mild shortness of breath, and generalized body weakness. Patient states she started having vaginal bleeding 2 weeks ago, states her regular menstrual period started ,and usually last for 5 days, but her vaginal bleeding has continued up to present which prompted her to report to the ER again today. Patient states she visited the ER on Saturday03/06/25 and received 1 unit of PRBC transfusion and discharged home. On admission assessment, patient was fully awake, alert and oriented x 3, denies of any chest pain, shortness of breath, nausea or vomiting, headaches, or abdominal pain at this time. Patient still endorses mild vaginal bleeding at this time. According to report received from the ER provider, he states he consulted , and accepted to see the patient tomorrow, but states in case there is an acute change of patient condition, she can be notified and she will come inn and see the patient tonight. She requested for patient to be administered 150 mg Depo progesterone x 1, and patient received the medication in ER. Patient H&H upon arrival to ER was 5.8/16.9, and after receiving 1 unit of PRBC, posttransfusion H&H is 7.0/20.4. Home medications list reviewed: No - Past Medical/Surgical History Has patient received pneumonia vaccine in the past: No Diabetic: No -: Vaginal bleeding started 2 weeks ago. -: Patient states she does not have any past surgical history. - Social History Smoking Status: Never smoker Alcohol use: No CD- Drugs: No Caffeine use: No Place of Residence: Home <Gurwinder Pope - Last Filed: 03/09/25 02:39> Date of Service: 03/10/25 <Keith De - Last Filed: 03/10/25 10:55> Allergies No Known Allergies Allergy (Unverified 03/08/25 16:15) Review of Systems 10-point ROS is otherwise unremarkable General: Weakness Respiratory: Shortness of Breath (Secondary to anemia.) <Gurwinder Pope - Last Filed: 03/09/25 02:39> Physical Examination - Vital Signs Temperature: 99.0 F Blood Pressure: 102/55 Pulse: 97 Respirations: 18 Pulse Ox (%): 100 - Physical Exam General: In no apparent distress, Oriented x3, Cooperative HEENT: Atraumatic, Normocephalic, PERRLA, Mucous membr. moist/pink, Sclerae nonicteric Neck: Supple, 2+ carotid pulse no bruit, No LAD Respiratory: Clear to auscultation bilaterally, Normal air movement Cardiovascular: No edema, Normal pulses, Regular rate/rhythm, Normal S1 S2, No gallops, No rubs, No murmurs Capillary refill: <2 Seconds Gastrointestinal: Normal bowel sounds, Soft and benign, W/out hepatomegaly, No ascites, No tenderness, No masses, No rebound, No guarding Musculoskeletal: No clubbing, No swelling, No contractures, No erythema, No tenderness, No warmth Integumentary: No rashes, No breakdown, No significant lesion, No tenderness/swelling, No erythema, No warmth, No cyanosis Neurological: Normal gait, Normal speech, Normal strength at 5/5 x4 extr, Normal tone, Sensation intact, Cranial nerves 3-12 intact, Normal reflexes 2+, Normal affect Lymphatics: No axilla or inguinal lymphadenopathy - Studies Laboratory Data (last 24 hrs) 03/08/25 03/08/25 15:24 15:24 WBC 9.60 Hgb 5.8 L* Hct 16.9 L Plt Count 225 Sodium 139 Potassium 3.7 BUN 15 Creatinine 0.85 Glucose 155 H Total Bilirubin 0.9 AST 13 L ALT 16 Alkaline Phosphatase 47 <Gurwinder Pope - Last Filed: 03/09/25 02:39> - Studies Laboratory Data (last 24 hrs) 03/09/25 14:00 PT 12.5 INR 1.11 APTT 25.7 L <Keith De - Last Filed: 03/10/25 10:55> Female Exam - Breasts Breasts: Normal configuration <ToshiaGurwinder - Last Filed: 03/09/25 02:39> Assessment and Plan - Plan Patient is a pleasant 19-year-old female admitted with diagnosis of anemia secondary to vaginal bleeding, and ANNA. (1)Anemia secondary to vaginal bleeding/ANNA. -Patient typed and screened and transfused 1 unit of PRBC. -Order for post H&H after transfusion is complete, and the result is 7.0/20.4. Order for 1 more unit of PRBC. -Order for NS at 125 mL an hour x 1 L.after the transfusion of second unit is completed. Volume depletion, secondary to continuous vaginal bleeding. -Consult . -Patient received one-time dose of Depo progesterone IM in ER as requested by Dr. Villaseñor. (2)Explained the entire treatment plan to the patient, solicit questions answ ered and voiced understanding. Discharge Plan: Home - Advance Directives Does patient have a Living Will: No Does patient have a Durable POA for Healthcare: No - Code Status/Comfort Care Code Status Assessed: Yes Code Status: Full Code Critical Care: No <Gurwinder Pope - Last Filed: 03/09/25 02:39> Date of Service: 03/09/25 Patient was seen and examined. Events of the last 24 hours have been noted. Spoke with with CLAUDIA regarding patient's clinical picture after evaluating and examining the patient independently. I performed a substantial part of the MDM during this patient's care today. I personally made or approved the documented management plan and acknowledge its risk of complications. I agree with the findings and documentation provided in the CLAUDIA's notes. Patient with menorrhagia. Continue with monitoring H&H closely. <Keith De - Last Filed: 03/10/25 10:55>
[2025-03-09 03:35] VITALS: O2SAT 100
[2025-03-09 04:34] LABS: Absolute Lymphocytes (CBC) 1.6 K/uL (0.7-4.9); Hematocrit 17.5 % (36.0-45.0); Hemoglobin 6.1 g/dL (12.0-15.0); MCH 28.6 pg (27.0-35.0); MCHC 34.5 g/dL (32.0-36.0); MCV 82.8 fL (80-100); MPV 9.2 fL (7.6-11.3); Nucleated RBC Absolute Count 0.0 (0-0); Nucleated Red Blood Cells % 0.1 % (0-0); RBC Red Blood Cell Count 2.12 M/uL (3.86-4.86); White Blood Count 6.70 thou/uL (4.3-10.9)
[2025-03-09 04:52] LABS: AST/SGOT 13 U/L (15-37); Albumin 2.5 g/dL (3.4-5.0); Alkaline Phosphatase 43 U/L (45-117); Anion Gap 6.4 mEq/L (5.0-15.0); BUN Blood Urea Nitrogen 14 mg/dL (7-18); Glucose Level 122 mg/dL (74-106); Potassium 3.4 mEq/L (3.5-5.1)
[2025-03-09 04:53] LABS: Albumin/Globulin Ratio 1.0 (1.1-1.8); Globulin 2.5 g/dL (2.3-3.5); Magnesium 1.8 mg/dL (1.6-2.4)
[2025-03-09 04:54] LABS: ALT/SGPT < 14 U/L (13-56)
[2025-03-09] MEDS ORDERED: NA CHLORIDE 0.9% 250 ML IV SCH (05:00)
[2025-03-09] MEDS: POTASSIUM CL SA 10 MEQ TAB PO ONE (09:05)
[2025-03-09 09:48] LABS: Absolute Lymphocytes (CBC) 2.2 K/uL (0.7-4.9); Hematocrit 21.8 % (36.0-45.0); Hemoglobin 7.4 g/dL (12.0-15.0); MCH 29.3 pg (27.0-35.0); MCHC 33.9 g/dL (32.0-36.0); MCV 86.3 fL (80-100); MPV 9.3 fL (7.6-11.3); Nucleated RBC Absolute Count 0.0 (0-0); Nucleated Red Blood Cells % 0.0 % (0-0); RBC Red Blood Cell Count 2.53 M/uL (3.86-4.86); White Blood Count 6.70 thou/uL (4.3-10.9)
--- NOTE | 2025-03-09 11:55 | RAD REPORT ---
EXAMINATION: Transvaginal Study Probe CLINICAL INDICATION: Pelvic pain. Vaginal bleeding TECHNIQUE: Real-time ultrasonography of the pelvis was performed transvaginally. Color and spectral D oppler evaluation of the ovaries was performed. COMPARISON: March 06, 2025. FINDINGS: The uterus measures 6 x 3 x 5 cm. A fibroid is not visualized The endometrial stripe measures 1.4 cm and is mildly diminished in size since prior exam. Small amoun t of fluid is present a fibroid is not visualized.. Small nabothian cyst cervix Right ovary normal in size and echotexture. Left ovary normal in size and echotexture. Right and left adnexa unremarkable No significant free fluid IMPRESSION: Mild decrease in the endometrial thickness since the prior examination. If the vaginal bleeding persi sts further evaluation with MRI would be recommended
--- NOTE | 2025-03-09 14:07 | P.CNS ---
Date of Consult: 03/09/25 Reason for Consult: Heavy vaginal bleeding Chief Complaint: Anemia secondary to vaginal bleeding, ANNA. - Past Medical/Surgical History Diabetic: No -: Vaginal bleeding started 2 weeks ago. -: Patient states she does not have any past surgical history. - Social History Alcohol use: No CD- Drugs: No Caffeine use: No Place of Residence: Home <Lyn Cavazos - Last Filed: 03/09/25 14:08> <Iris Villaseñor - Last Filed: 03/12/25 08:02> Allergies No Known Allergies Allergy (Unverified 03/08/25 16:15) Review of Systems 10-point ROS is otherwise unremarkable <Lyn Cavazos - Last Filed: 03/09/25 14:08> Physical Examination Temp Pulse Resp BP Pulse Ox 98.3 F 87 16 99/59 L 100 03/09/25 12:00 03/09/25 12:00 03/09/25 12:00 03/09/25 12:00 03/09/25 12:00 General: Alert, In no apparent distress, Oriented x3 HEENT: Atraumatic, Normocephalic Neck: Supple Cardiovascular: No edema Gastrointestinal: Soft and benign Musculoskeletal: No clubbing, No swelling Neurological: Normal speech Laboratory Data (last 24 hrs) 03/08/25 03/08/25 15:24 15:24 WBC 9.60 Hgb 5.8 L* Hct 16.9 L Plt Count 225 Sodium 139 Potassium 3.7 BUN 15 Creatinine 0.85 Glucose 155 H Total Bilirubin 0.9 AST 13 L ALT 16 Alkaline Phosphatase 47 <Lyn Cavazos - Last Filed: 03/09/25 14:08> Temp Pulse Resp BP Pulse Ox 99.3 F 94 H 18 108/59 L 100 03/11/25 12:00 03/11/25 12:00 03/11/25 12:00 03/11/25 12:00 03/11/25 12:00 <Iris Villaseñor - Last Filed: 03/12/25 08:02> Conclusions/Impression: 1. Excessive and frequent menstruation with irregular cycle: cycles previously regular and monthly, 5d light to moderate bleeding. Current cycle lasting for 2 weeks heavy with large clots. Changing super pad every 1-2 hours. Never before sexually active, serum Hcg <1. DMPA 150 given yesterday. Bleeding has started to improve but still passing some clots per pt. Recommend start OCs with loloestrin and follow up outpatient. If bleeding does not resolve consider hyst D&C. TVUS reviewed and lining somewhat thickened, no evidence of polyp or fibroid, any other abnormalities. Denies any pelvic pain. 2. Anemia: on arrival to ED Hgb 5.8. Hgb stable today at 7.4 s/p 2 PRBC. Continue to monitor and will trend outpatient. Needs bleeding control. PT/INR and PTT are pending. Will need w/u for vWF deficiency which can be done in outpatient setting once Hgb/bleeding is stabilized. No h/o clotting disorders to the patient's knowledge for herself or family members. Denies easy bruising/epistaxis/bleeding gums/prolonged bleeding from any prior injuries. Above plan discussed with . Advised patient to see us in outpatient clinic after discharge for continued f/u on bleeding/anemia. <Lyn Cavazos - Last Filed: 03/09/25 14:08> Physician Review: Patient Assessed, Agree with Above Assessment and Plan (plan to followup in clinic out patient) Critical Care: No <Iris Villaseñor - Last Filed: 03/12/25 08:02>
[2025-03-09 14:15] LABS: Percent Reticulocyte Count 3.39 % (0.4-2.05); RBC Red Blood Cell Count 2.39 M/uL (3.86-4.86)
[2025-03-09 14:24] LABS: PT Prothrombin Time 12.5 SECONDS (10-13.0); PTT, Activated Partial Thromb 25.7 SECONDS (27.2-37.4); Protime INR 1.11
[2025-03-09 14:54] LABS: Iron 25.0 ug/dL (50-170)
[2025-03-09] MEDS: CYANOCOBALAMIN 1000MCG/ML INJ IM ONE (20:11)
[2025-03-09] MEDS: SOD FERRIC GLUC COMPLX/SUCROSE 125 MG in NA CHLORIDE 0.9% 100 ML IV SCH (20:11)
[2025-03-10 04:30] LABS: Absolute Lymphocytes (CBC) 1.7 K/uL (0.7-4.9); Hematocrit 16.3 % (36.0-45.0); MCH 29.6 pg (27.0-35.0); MCHC 35.0 g/dL (32.0-36.0); MCV 84.5 fL (80-100); MPV 8.5 fL (7.6-11.3); Nucleated RBC Absolute Count 0.0 (0-0); Nucleated Red Blood Cells % 0.1 % (0-0); RBC Red Blood Cell Count 1.93 M/uL (3.86-4.86); White Blood Count 5.30 thou/uL (4.3-10.9)
[2025-03-10 04:33] LABS: Hemoglobin 5.7 g/dL (12.0-15.0)
[2025-03-10 05:01] LABS: Albumin 2.3 g/dL (3.4-5.0); Albumin/Globulin Ratio 1.0 (1.1-1.8); Alkaline Phosphatase 41 U/L (45-117); Anion Gap 5.6 mEq/L (5.0-15.0); BUN Blood Urea Nitrogen 16 mg/dL (7-18); Globulin 2.3 g/dL (2.3-3.5); Glucose Level 103 mg/dL (74-106); Iron 162.0 ug/dL (50-170); Potassium 3.6 mEq/L (3.5-5.1)
[2025-03-10 05:06] LABS: ALT/SGPT < 14 U/L (13-56); AST/SGOT < 10 U/L (15-37)
--- NOTE | 2025-03-10 10:44 | P.PN ---
Date of Service: 03/09/25 Subjective Patient continues to have bleeding. Patient denies any new complaints. Patient's clinical symptoms are overall stable but hemoglobin repeat is pending. 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 Physical Examination - Vital Signs Reviewed - Physical Exam General: In no apparent distress, Oriented x3, Cooperative Respiratory: Clear to auscultation bilaterally, Normal air movement Cardiovascular: No edema, Normal pulses, Regular rate/rhythm, Normal S1 S2, No gallops, No rubs, No murmurs Gastrointestinal: Normal bowel sounds, Soft and benign, W/out hepatomegaly, No ascites, No tenderness, No masses, No rebound, No guarding Musculoskeletal: No clubbing, No swelling, No contractures, No erythema, No tenderness, No warmth Integumentary: No rashes, No breakdown, No significant lesion, No tenderness/swelling, No erythema, No warmth, No cyanosis Neurological: No focal deficits Assessment and Plan - Assessment/Plan Patient is a pleasant 19-year-old female admitted with diagnosis of anemia secondary to vaginal bleeding, and ANNA. (1) Anemia secondary to menorrhagia - Status post Depo-Provera; seen by PROCEDURES TECH and recommending OTC. (2) Explained the entire treatment plan to the patient, solicit questions answered and voiced understanding. Discharge Plan: Home - Advance Directives Does patient have a Living Will: No Does patient have a Durable POA for Healthcare: No - Code Status/Comfort Care Code Status Assessed: Yes Code Status: Full Code Critical Care: No
--- NOTE | 2025-03-10 11:16 | RAD REPORT ---
EXAMINATION: Abdomen Pelvis W Contrast CLINICAL INDICATION: Female, 19 years old.menorrhagia TECHNIQUE: CT abdomen and pelvis was performed, after the administration of IV contrast, as per [facility]. Axial, sagittal and coronal reconstructions were obtained. One or more of the following dose reduction techniques were used: Automated exposure control, adjustment of the mA and/o r kV according to patient size, and/or iterative reconstruction. Unless otherwise specified, incidental findings do not require dedicated imaging follow-up. [id number]. COMPARISON: Pelvic ultrasound 03/09/2025 FINDINGS: LOWER CHEST: No acute process identified.No significant pericardial effusion. UPPER GI: No significant abnormality. LIVER: No significant focal abnormality. GALLBLADDER/BILE DUCTS: No biliary ductal dilatation.? PANCREAS: No mass, ductal dilation, or milena-pancreatic fluid. SPLEEN: Unremarkable. ADRENALS: No adrenal masses. KIDNEYS AND URETERS: No hydronephrosis.No suspicious renal mass.No renal calculi. ABDOMINAL AORTA AND OTHER VESSELS: Normal caliber aorta and IVC. PERITONEUM: No abnormal free fluid. No free air. LYMPH NODES: No pathologic lymphadenopathy. ABDOMINAL WALL: Unremarkable SMALL BOWEL/COLON: Small bowel has normal course and caliber. No colonic wall thickening or pericolon ic inflammatory changes.Normal appendix. URINARY BLADDER: Underdistended but grossly unremarkable. REPRODUCTIVE ORGANS: Endometrial thickening, better evaluated on ultrasound. Fullness in the vagina d ue to blood products. MUSCULOSKELETAL: No acute or suspicious osseous abnormality. ADDITIONAL FINDINGS: None. IMPRESSION: No acute findings within the abdomen or pelvis. Uterine and vaginal findings better evaluated with ultrasound and direct visualization, respectively.
[2025-03-10] MEDS: POTASSIUM CL SA 10 MEQ TAB PO ONE ×2 (12:57→13:09)
[2025-03-10 15:28] LABS: Absolute Lymphocytes (CBC) 2.1 K/uL (0.7-4.9); Hematocrit 28.0 % (36.0-45.0); Hemoglobin 9.6 g/dL (12.0-15.0); MCH 29.4 pg (27.0-35.0); MCHC 34.5 g/dL (32.0-36.0); MCV 85.1 fL (80-100); MPV 8.6 fL (7.6-11.3); Nucleated RBC Absolute Count 0.0 (0-0); Nucleated Red Blood Cells % 0.0 % (0-0); RBC Red Blood Cell Count 3.29 M/uL (3.86-4.86); White Blood Count 9.40 thou/uL (4.3-10.9)
[2025-03-10 18:28] LABS: Absolute Lymphocytes (CBC) 1.7 K/uL (0.7-4.9); Hematocrit 26.2 % (36.0-45.0); Hemoglobin 8.8 g/dL (12.0-15.0); MCH 28.8 pg (27.0-35.0); MCHC 33.5 g/dL (32.0-36.0); MCV 85.8 fL (80-100); MPV 9.3 fL (7.6-11.3); Nucleated RBC Absolute Count 0.0 (0-0); Nucleated Red Blood Cells % 0.0 % (0-0); RBC Red Blood Cell Count 3.05 M/uL (3.86-4.86); White Blood Count 8.10 thou/uL (4.3-10.9)
[2025-03-11 07:13] LABS: Absolute Lymphocytes (CBC) 1.1 K/uL (0.7-4.9); Hematocrit 28.1 % (36.0-45.0); Hemoglobin 9.7 g/dL (12.0-15.0); MCH 29.3 pg (27.0-35.0); MCHC 34.5 g/dL (32.0-36.0); MCV 84.9 fL (80-100); MPV 8.6 fL (7.6-11.3); Nucleated RBC Absolute Count 0.0 (0-0); Nucleated Red Blood Cells % 0.0 % (0-0); RBC Red Blood Cell Count 3.30 M/uL (3.86-4.86); White Blood Count 10.20 thou/uL (4.3-10.9)
[2025-03-11 12:40] VITALS: BP 108/59; TEMP 99.3
== END 2025-03-11 16:57 | disposition home or self-care (01) | DRG 760 ==
LOC: ER 15:10 → 2ND 19:58 → OBSVTOIN 03-09 18:05
PROVIDERS: ADMIT Hospitalist; ATTEND Hospitalist
PROC: 30233N1 Transfusion of Nonautologous Red Blood Cells into Peripheral Vein, Percutaneous Approach (ICD-10-PCS; principal; 2025-03-08)
DX: N92.0 Excessive and frequent menstruation with regular cycle (principal); N17.9 Acute kidney failure, unspecified; D64.9 Anemia, unspecified; E86.9 Volume depletion, unspecified; R00.0 Tachycardia, unspecified
CPT/HCPCS: 36415; 36430; 74177; 76830; 80053; 82607; 83540; 83735; 84702; 84703; 85025; 85027; 85044; 85610; 85730; 86850; 86900; 86901; 86920; 93005; 96372; 99285; G0378; J1050; J1200; J1720; J2916; J3420; J7050; P9016; Q9967